=== PATIENT | male | born 1985 | race Caucasian/White ===

== ENCOUNTER 2018-12-06 13:49 | Inpatient (IN) | payer OTHER ==
[2018-12-06 15:45] VITALS: BMI 28.4
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
[2018-12-06] MEDS ORDERED: ALBUTEROL SO4 8 GM HFA INHALER IH PRN (19:48)
[2018-12-06] MEDS ORDERED: chlordiazePOXIDE HCL 25 MG CAPSULE PO ONE (19:50)
[2018-12-06] MEDS ORDERED: MAGNESIUM HYDROX 2400MG/30ML ORAL SUSPENSION 30 ML CUP PO PRN (19:50)
[2018-12-06] MEDS ORDERED: ACETAMINOPHEN 325 MG TABLET (FP) PO PRN (19:50)
[2018-12-06] MEDS ORDERED: MAGNESIUM CITRATE 300 ML BOTTLE PO PRN (19:50)
[2018-12-06] MEDS ORDERED: NICOTINE POLACRILEX 2 MG GUM BC PRN (19:50)
[2018-12-06] MEDS ORDERED: guaiFENesin/D-METHORPHAN HB 10 ML UNIT-DOSE CUPS PO PRN (19:50)
[2018-12-06] MEDS ORDERED: P-EPHED 60MG/TRIPROLIDI 2.5MG TABLET PO PRN (19:50)
[2018-12-06] MEDS ORDERED: IBUPROFEN 400 MG TABLET (FP) PO PRN (19:50)
[2018-12-06] MEDS ORDERED: MENTHOL/PHENOL 1 EACH UD MM PRN (19:50)
[2018-12-06] MEDS ORDERED: LOPERAMIDE HCL 2 MG CAPSULE PO PRN (19:50)
[2018-12-06] MEDS: chlordiazePOXIDE HCL 25 MG CAPSULE PO SCH (23:10)
[2018-12-06] MEDS: THIAMINE HCL 100 MG TABLET (FP) PO SCH (23:10)
[2018-12-07] MEDS: chlordiazePOXIDE HCL 25 MG CAPSULE PO SCH ×4 (05:15→22:04)
[2018-12-07] MEDS: NICOTINE 14 MG/24 HOURS TOPICAL PATCH TD SCH (10:32)
[2018-12-07] MEDS: PRENATAL VITAMINS W/ FOLIC ACID TABLET (FP) PO SCH (10:32)
[2018-12-07 10:42] LABS: HEMATOCRIT 38.9 % (35.4-49); HEMOGLOBIN 13.5 GM/dL (11.7-16.9); MCH 33.3 pg (25.7-33.7); MCHC 34.6 g/dl (32.0-35.9); MEAN CELL VOLUME 96.1 fl (80-96); MEAN PLT VOLUME 8.3 fl (7.5-11.1); PLATELET COUNT 213 K/MM3 (134-434); RBC 4.05 M/mm3 (4.00-5.60); RDW 14.8 % (11.9-15.9); WHITE BLOOD COUNT 5.8 K/mm3 (4.0-10.0)
[2018-12-07 11:04] LABS: ALK PHOS 91 U/L (45-117); ANION GAP 11 MMOL/L (8-16); BILIRUBIN,TOTAL 0.8 mg/dL (0.2-1); BLOOD UREA NITROGEN 10 mg/dL (7-18); CALCIUM 8.5 mg/dL (8.5-10.1); CHLORIDE 103 mmol/L (98-107); CO2 25 mmol/L (21-32); CREATININE 0.7 mg/dL (0.55-1.3); GLUCOSE,RANDOM 80 mg/dL (74-106); POTASSIUM 3.6 mmol/L (3.5-5.1); SGOT/AST 93 U/L (15-37); SGPT/ALT 70 U/L (13-61); SODIUM 139 mmol/L (136-145); TOT PROT 6.8 g/dl (6.4-8.2)
--- NOTE | 2018-12-07 11:19 | CONSULT ---
[facility] Psychiatric Consult - Data Date of interview: 12/07/18 Admission source: [facility] Identifying data: [facility] [address] [place] [address] for this 33 yo H single male,unemploeyed,residing with family,supported by family. Substance Abuse History: Reports drinking since 11 yo,6 pints of vodka/tami, cocaine since 20 yo,spending about $500 daily when has money. Medical History: Significant for BA,GERD. Psychiatric History: Patient reports mood instability since his teens.He was dx with Bipolar disorder,hospitalized to psychiatric hospital in childhood due to behavior problems.Reports no history of suicidality.Patient was seen by psychiatrist while in inpatient rehabilitation treatment recently,was placed on Trazodone with good response.No psychiatric OPD care.Reports sleeping difficulties. Physical/Sexual Abuse/Trauma History: Patient denies. Mental Status Exam - Mental Status Exam Alert and Oriented to: Time, Place, Person Cognitive Function: Grossly Intact Patient Appearance: Unkempt Mood: Anxious Affect: Mood Congruent, Labile Patient Behavior: Appropriate, Cooperative Speech Pattern: Clear Voice Loudness: Normal Thought Process: Goal Oriented Thought Disorder: Not Present Hallucinations: Denies Suicidal Ideation: Denies Homicidal Ideation: Denies Insight/Judgement: Fair Sleep: Difficulty falling asleep Appetite: Fair Muscle strength/Tone: Normal Gait/Station: Normal Psychiatric Findings - Problem List ([place] 1, 2,3) (1) Asthma Current Visit: Yes Status: Chronic Qualifiers: Asthma severity: unspecified severity Asthma complication type: uncomplicated (2) Cocaine dependence Current Visit: Yes Status: Chronic (3) GERD (gastroesophageal reflux disease) Current Visit: Yes Status: Chronic Qualifiers: Esophagitis presence: without esophagitis Qualified Code(s): K21.9 - Gastro -esophageal reflux disease without esophagitis (4) Nicotine dependence Current Visit: Yes Status: Chronic Qualifiers: Nicotine product type: cigarettes Substance use status: uncomplicated Qualified Code(s): F17.210 - Nicotine dependence, cigarettes, uncomplicated (5) Opioid dependence Current Visit: No Status: Active (6) Alcohol dependence Current Visit: Yes Status: Chronic (7) Substance induced mood disorder Current Visit: Yes Status: Chronic (8) Drug induced insomnia Current Visit: No Status: Chronic - Initial Treatment Plan Initial Treatment Plan: Restart Trazodone 100 mg po hs. Will monitor progress.
--- NOTE | 2018-12-07 11:42 | PN ---
S CIWA - CIWA Score Nausea/Vomitin-Mild Nausea/No Vomiting Muscle Tremors: 3 Anxiety: 3 Agitation: 4-Moderately Restless Paroxysmal Sweats: 3 Orientation: 0-Oriented Tacttile Disturbances: 0-None Auditory Disturbances: 0-None Visual Disturbances: 0-None Headache: 0-None Present CIWA-Ar Total Score: 14 S Progress Note (SOAP) Subjective: nausea sweats dizzy irritable body aches Objective: 12/07/18 11:41 Vital Signs Temperature 98.1 F 12/07/18 09:14 Pulse Rate 98 H 12/07/18 09:14 Respiratory Rate 16 12/07/18 09:14 Blood Pressure 145/95 12/07/18 09:14 O2 Sat by Pulse Oximetry (%) Laboratory Tests 12/07/18 12/07/18 12/07/18 07:00 07:00 07:00 WBC 5.8 RBC 4.05 Hgb 13.5 Hct 38.9 MCV 96.1 H MCH 33.3 MCHC 34.6 RDW 14.8 Plt Count 213 D MPV 8.3 D Sodium 139 Potassium 3.6 Chloride 103 Carbon Dioxide 25 Anion Gap 11 BUN 10 Creatinine 0.7 Creat Clearance w eGFR > 60 Random Glucose 80 Calcium 8.5 Total Bilirubin 0.8 AST 93 H ALT 70 H Alkaline Phosphatase 91 Total Protein 6.8 Albumin 4.0 HIV 1&2 Antibody Screen Negative HIV P24 Antigen Negative aaox3 lying in bed no acute distress Assessment: 12/07/18 11:41 withdrawal sx Plan: continue detox increase fluids
[2018-12-07] MEDS: MAG HYDROX/AL HYDROX/SIMETH 30 ML UNIT-DOSE CUP PO PRN (16:55)
[2018-12-07] MEDS: THIAMINE HCL 100 MG TABLET (FP) PO SCH (22:03)
[2018-12-07] MEDS: MELATONIN 5 MG TABLETS PO PRN (22:04)
[2018-12-08] MEDS: chlordiazePOXIDE HCL 25 MG CAPSULE PO SCH ×3 (05:52→17:49)
[2018-12-08] MEDS: MAG HYDROX/AL HYDROX/SIMETH 30 ML UNIT-DOSE CUP PO PRN ×2 (05:54→17:49)
[2018-12-08] MEDS: NICOTINE 14 MG/24 HOURS TOPICAL PATCH TD SCH (10:41)
[2018-12-08] MEDS: PRENATAL VITAMINS W/ FOLIC ACID TABLET (FP) PO SCH (10:41)
--- NOTE | 2018-12-08 11:18 | PN ---
S CIWA - CIWA Score Nausea/Vomitin Muscle Tremors: 2 Anxiety: 2 Agitation: 2 Paroxysmal Sweats: 2 Orientation: 0-Oriented Tacttile Disturbances: 2-Mild Itch/Numbness/Burn Auditory Disturbances: 0-None Visual Disturbances: 0-None Headache: 1-Very Mild CIWA-Ar Total Score: 13 S Progress Note (SOAP) Subjective: Abdominal cramps,nausea with small vomiting Objective: 12/08/18 11:17 Vital Signs 12/08/18 12/08/18 06:00 09:40 Temperature 97.0 F L 97.9 F Pulse Rate 70 75 Respiratory 18 18 Rate Blood Pressure 121/81 100/57 L Laboratory Last Values WBC 5.8 K/mm3 (4.0-10.0) 12/07/18 07:00 RBC 4.05 M/mm3 (4.00-5.60) 12/07/18 07:00 Hgb 13.5 GM/dL (11.7-16.9) 12/07/18 07:00 Hct 38.9 % (35.4-49) 12/07/18 07:00 MCV 96.1 fl (80-96) H 12/07/18 07:00 MCH 33.3 pg (25.7-33.7) 12/07/18 07:00 MCHC 34.6 g/dl (32.0-35.9) 12/07/18 07:00 RDW 14.8 % (11.9-15.9) 12/07/18 07:00 Plt Count 213 K/MM3 (134-434) D 12/07/18 07:00 MPV 8.3 fl (7.5-11.1) D 12/07/18 07:00 Sodium 139 mmol/L (136-145) 12/07/18 07:00 Potassium 3.6 mmol/L (3.5-5.1) 12/07/18 07:00 Chloride 103 mmol/L (98-107) 12/07/18 07:00 Carbon Dioxide 25 mmol/L (21-32) 12/07/18 07:00 Anion Gap 11 MMOL/L (8-16) 12/07/18 07:00 BUN 10 mg/dL (7-18) 12/07/18 07:00 Creatinine 0.7 mg/dL (0.55-1.3) 12/07/18 07:00 Creat Clearance w eGFR > 60 (>60) 12/07/18 07:00 Random Glucose 80 mg/dL (74-106) 12/07/18 07:00 Calcium 8.5 mg/dL (8.5-10.1) 12/07/18 07:00 Total Bilirubin 0.8 mg/dL (0.2-1) 12/07/18 07:00 AST 93 U/L (15-37) H 12/07/18 07:00 ALT 70 U/L (13-61) H 12/07/18 07:00 Alkaline Phosphatase 91 U/L (45-117) 12/07/18 07:00 Total Protein 6.8 g/dl (6.4-8.2) 12/07/18 07:00 Albumin 4.0 g/dl (3.4-5.0) 12/07/18 07:00 RPR Titer Nonreactive (NONREACTIVE) 12/07/18 07:00 HIV 1&2 Antibody Screen Negative 12/07/18 07:00 HIV P24 Antigen Negative 12/07/18 07:00 Labs noted, no panic values Assessment: 12/08/18 11:17 Withdrawal sx Plan: Continue detox
[2018-12-08] MEDS ORDERED: ONDANSETRON 8 MG TABLET (FP) PO ONE (12:00)
[2018-12-08] MEDS ORDERED: ONDANSETRON 4 MG TABLET PO ONE (15:00)
[2018-12-08] MEDS: chlordiazePOXIDE HCL 25 MG CAPSULE PO PRN (20:08)
[2018-12-08] MEDS: chlordiazePOXIDE 5 MG CAPSULE PO SCH (23:34)
[2018-12-08] MEDS: THIAMINE HCL 100 MG TABLET (FP) PO SCH (23:35)
[2018-12-08] MEDS: hydrOXYzine PAMOATE 50 MG CAPSULE (FP) PO PRN (23:37)
[2018-12-09] MEDS: chlordiazePOXIDE 5 MG CAPSULE PO SCH ×3 (06:02→22:59)
[2018-12-09] MEDS: MAG HYDROX/AL HYDROX/SIMETH 30 ML UNIT-DOSE CUP PO PRN (06:03)
[2018-12-09] MEDS: NICOTINE 14 MG/24 HOURS TOPICAL PATCH TD SCH (10:50)
[2018-12-09] MEDS: PRENATAL VITAMINS W/ FOLIC ACID TABLET (FP) PO SCH (10:52)
[2018-12-09] MEDS: chlordiazePOXIDE HCL 25 MG CAPSULE PO PRN ×2 (11:34→17:00)
--- NOTE | 2018-12-09 13:34 | PN ---
[facility] Progress Note (SOAP) Subjective: Tremor, sweating Objective: 12/09/18 13:32 Last Vital Signs Temp Pulse Resp BP Pulse Ox 98.3 F 81 18 128/90 12/09/18 10:08 12/09/18 10:08 12/09/18 10:08 12/09/18 10:08 Laboratory Tests 12/07/18 12/07/18 12/07/18 07:00 07:00 07:00 WBC 5.8 RBC 4.05 Hgb 13.5 Hct 38.9 MCV 96.1 H MCH 33.3 MCHC 34.6 RDW 14.8 Plt Count 213 D MPV 8.3 D Sodium 139 Potassium 3.6 Chloride 103 Carbon Dioxide 25 Anion Gap 11 BUN 10 Creatinine 0.7 Creat Clearance w eGFR > 60 Random Glucose 80 Calcium 8.5 Total Bilirubin 0.8 AST 93 H ALT 70 H Alkaline Phosphatase 91 Total Protein 6.8 Albumin 4.0 RPR Titer Nonreactive HIV 1&2 Antibody Screen HIV P24 Antigen 12/07/18 07:00 WBC RBC Hgb Hct MCV MCH MCHC RDW Plt Count MPV Sodium Potassium Chloride Carbon Dioxide Anion Gap BUN Creatinine Creat Clearance w eGFR Random Glucose Calcium Total Bilirubin AST ALT Alkaline Phosphatase Total Protein Albumin RPR Titer HIV 1&2 Antibody Screen Negative HIV P24 Antigen Negative Labs reviewed Assessment: 12/09/18 13:33 Withdrawal symptoms Plan: Continue detox Encouraged PO water intake
[2018-12-09] MEDS: THIAMINE HCL 100 MG TABLET (FP) PO SCH (22:59)
[2018-12-09] MEDS: MELATONIN 5 MG TABLETS PO PRN (22:59)
[2018-12-09] MEDS: chlordiazePOXIDE HCL 10 MG CAPSULE PO SCH (22:59)
[2018-12-09] MEDS: hydrOXYzine PAMOATE 50 MG CAPSULE (FP) PO PRN (22:59)
[2018-12-10] MEDS: chlordiazePOXIDE HCL 10 MG CAPSULE PO SCH ×3 (05:39→17:09)
[2018-12-10] MEDS: NICOTINE 14 MG/24 HOURS TOPICAL PATCH TD SCH (10:29)
[2018-12-10] MEDS: PRENATAL VITAMINS W/ FOLIC ACID TABLET (FP) PO SCH (10:29)
--- NOTE | 2018-12-10 12:54 | DS ---
[facility] Detox Discharge Summary Admission Date: 12/06/18 Discharge Date: 12/10/18 - History Present History: Alcohol Dependence, Cocaine Dependence, Opioid Dependence Additional Comments: PATIENT SCHEDULED FOR DISCHARGE FROM DETOX UNIT TO DAY. PATIENT GOING TO [facility] ([place] [email or web address] FOR AFTERCARE. PATIENT WAS DISCHARGED FROM DETOX UNIT TO BE TAKEN OVER TO REHAB UNIT IN STABLE MEDICAL CONDITION. Pertinent Past History: History of Bipolar Disorder, History of P.T.S.D., Nicotine Dependence, Asthma, History of Depression, Insomnia, History of G.E.R.D. - Physical Exam Results Vital Signs: Vital Signs Temperature 97.5 F L 12/10/18 09:26 Pulse Rate 94 H 12/10/18 09:26 Respiratory Rate 18 12/10/18 09:26 Blood Pressure 115/75 12/10/18 09:26 O2 Sat by Pulse Oximetry (%) Pertinent Admission Physical Exam Findings: WITHDRAWAL SYMPTOMS. Laboratory Tests 12/07/18 12/07/18 12/07/18 07:00 07:00 07:00 WBC 5.8 RBC 4.05 Hgb 13.5 Hct 38.9 MCV 96.1 H MCH 33.3 MCHC 34.6 RDW 14.8 Plt Count 213 D MPV 8.3 D Sodium 139 Potassium 3.6 Chloride 103 Carbon Dioxide 25 Anion Gap 11 BUN 10 Creatinine 0.7 Creat Clearance w eGFR > 60 Random Glucose 80 Calcium 8.5 Total Bilirubin 0.8 AST 93 H ALT 70 H Alkaline Phosphatase 91 Total Protein 6.8 Albumin 4.0 RPR Titer Nonreactive HIV 1&2 Antibody Screen HIV P24 Antigen 12/07/18 07:00 WBC RBC Hgb Hct MCV MCH MCHC RDW Plt Count MPV Sodium Potassium Chloride Carbon Dioxide Anion Gap BUN Creatinine Creat Clearance w eGFR Random Glucose Calcium Total Bilirubin AST ALT Alkaline Phosphatase Total Protein Albumin RPR Titer HIV 1&2 Antibody Screen Negative HIV P24 Antigen Negative LABS NOTED. - Treatment Hospital Course: Detox Protocol Followed, Detoxed Safely, Responded well, Discharged Condition Good, Rehab Referral Accepted Patient has Accepted a Rehab Referral to: [facility] ([place], [place]). - Medication Discharge Medications: Ambulatory Orders Albuterol Sulfate Inhaler - [Ventolin HFA Inhaler -] 2 inh PO Q4H PRN #1 cartridge 01/10/16 Thiamine HCl [Vitamin B1 -] 100 mg PO HS #30 tablet 01/10/16 Omeprazole 20 mg PO DAILY 12/06/18 - Diagnosis (1) Alcohol dependence with uncomplicated withdrawal Current Visit: Yes Status: Acute (2) Asthma Current Visit: Yes Status: Chronic Qualifiers: Asthma severity: mild Asthma persistence: intermittent Asthma complication type: uncomplicated Qualified Code(s): J45.20 - Mild intermittent asthma, uncomplicated (3) Cocaine dependence Current Visit: Yes Status: Chronic (4) Substance induced mood disorder Current Visit: Yes Status: Acute (5) GERD (gastroesophageal reflux disease) Current Visit: Yes Status: Chronic Qualifiers: Esophagitis presence: without esophagitis Qualified Code(s): K21.9 - Gastro -esophageal reflux disease without esophagitis (6) Drug induced insomnia Current Visit: Yes Status: Chronic (7) Nicotine dependence Current Visit: Yes Status: Chronic Qualifiers: Nicotine product type: cigarettes Substance use status: uncomplicated Qualified Code(s): F17.210 - Nicotine dependence, cigarettes, uncomplicated (8) Opioid dependence Current Visit: Yes Status: Chronic - AMA Did Patient Leave Against Medical Advice: No
[2018-12-10 13:29] VITALS: BP 127/77; PULSE 81; TEMP 98.6
== END 2018-12-10 17:39 | disposition other institution (70) | DRG 773 ==
LOC: YASAS 13:49 → Y6N 21:59
PROVIDERS: ADMIT Neuromusculoskeletal Medicine & OMM; ATTEND Neuromusculoskeletal Medicine & OMM
PROC: HZ2ZZZZ Detoxification Services for Substance Abuse Treatment (ICD-10-PCS; principal; 2018-12-06)
DX: F11.20 Opioid dependence, uncomplicated (principal); F10.230 Alcohol dependence with withdrawal, uncomplicated; F14.20 Cocaine dependence, uncomplicated; F17.210 Nicotine dependence, cigarettes, uncomplicated; F19.282 Other psychoactive substance dependence with psychoactive substance-induced sleep disorder; F19.24 Other psychoactive substance dependence with psychoactive substance-induced mood disorder; F31.9 Bipolar disorder, unspecified; F43.10 Post-traumatic stress disorder, unspecified; F41.8 Other specified anxiety disorders; J45.20 Mild intermittent asthma, uncomplicated; K21.9 Gastro-esophageal reflux disease without esophagitis
CPT/HCPCS: 36415; 80053; 85027; 86593; 87389

== ENCOUNTER 2018-12-10 17:57 | Inpatient (IN) | payer OTHER ==
--- NOTE | 2018-12-10 13:01 | HP ---
[facility] Rehab Assess/Revision - Admission History Admitted to Rehab from[facility] Date of Admission to Rehab: 12/10/2018 - Vital signs Vital Signs: NOTED; STABLE. - Findings Detox History & Physical reviewed: Yes Concur with findings: Yes Comments/Additional Findings: PATIENT'S MEDICAL / MEDICATION HISTORY REVIEWED PRIOR TO DISCHARGE FROM DETOX UNIT. PATIENT WAS DISCHARGED FROM DETOX UNIT TO BE TAKEN TO REHAB UNIT IN STABLE MEDICAL CONDITION. Inpatient Rehab Admission - Initial Determination Are CD services needed?: Yes Free of communicable disease: Yes Not in need of hospitalization: Yes - Rehab Admission Criteria Previous failed treatment: Yes Comorbidities: Yes Patient is meeting Inpatient Rehab admission criteria:: Yes
[~2018-12-10 17:57] MED LIST: ACETAMINOPHEN 325 MG TABLET (FP) PO PRN; ALBUTEROL SO4 8 GM HFA INHALER IH PRN; IBUPROFEN 400 MG TABLET (FP) PO PRN; LOPERAMIDE HCL 2 MG CAPSULE PO PRN; MAGNESIUM CITRATE 300 ML BOTTLE PO PRN; MAGNESIUM HYDROX 2400MG/30ML ORAL SUSPENSION 30 ML CUP PO PRN; MENTHOL/PHENOL 1 EACH UD MM PRN; NICOTINE POLACRILEX 2 MG GUM BUC PRN; P-EPHED 60MG/TRIPROLIDI 2.5MG TABLET PO PRN; guaiFENesin/D-METHORPHAN HB 10 ML UNIT-DOSE CUPS PO PRN
[2018-12-10] MEDS: THIAMINE HCL 100 MG TABLET (FP) PO SCH (21:52)
[2018-12-10] MEDS ORDERED: MELATONIN 5 MG TABLETS PO PRN (22:00)
[2018-12-11] MEDS: MAG HYDROX/AL HYDROX/SIMETH 30 ML UNIT-DOSE CUP PO PRN ×2 (01:24→11:19)
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
[2018-12-11] MEDS: PRENATAL VITAMINS W/ FOLIC ACID TABLET (FP) PO SCH (11:18)
[2018-12-11] MEDS: NICOTINE 14 MG/24 HOURS TOPICAL PATCH TD SCH (11:19)
[2018-12-11] MEDS ORDERED: MELATONIN 5 MG TABLETS PO PRN (11:59)
[2018-12-11] MEDS ORDERED: hydrOXYzine PAMOATE 50 MG CAPSULE (FP) PO PRN (12:00)
[2018-12-11] MEDS: PANTOPRAZOLE 40 MG TABLET (FP) PO SCH (12:22)
[2018-12-11] MEDS: THIAMINE HCL 100 MG TABLET (FP) PO SCH (21:35)
[2018-12-11] MEDS: traZODone HCL 100 MG TABLET (FP) PO SCH (21:35)
[2018-12-12] MEDS: MAG HYDROX/AL HYDROX/SIMETH 30 ML UNIT-DOSE CUP PO PRN (04:25)
[2018-12-12] MEDS: PANTOPRAZOLE 40 MG TABLET (FP) PO SCH (10:52)
[2018-12-12] MEDS: PRENATAL VITAMINS W/ FOLIC ACID TABLET (FP) PO SCH (10:52)
[2018-12-12] MEDS: NICOTINE 14 MG/24 HOURS TOPICAL PATCH TD SCH (10:53)
[2018-12-12] MEDS: THIAMINE HCL 100 MG TABLET (FP) PO SCH (21:44)
[2018-12-12] MEDS: traZODone HCL 100 MG TABLET (FP) PO SCH (21:44)
[2018-12-13] MEDS: NICOTINE 14 MG/24 HOURS TOPICAL PATCH TD SCH (10:22)
[2018-12-13] MEDS: PRENATAL VITAMINS W/ FOLIC ACID TABLET (FP) PO SCH (10:22)
[2018-12-13] MEDS: PANTOPRAZOLE 40 MG TABLET (FP) PO SCH (10:22)
[2018-12-13] MEDS: RANITIDINE HCL 150 MG TABLET (FP) PO SCH ×2 (12:55→21:42)
--- NOTE | 2018-12-13 15:34 | PN ---
[facility] Progress Note Note: C/O PROTONIX NOT EFFECTIIVE FOR ACID REFLUX AND WANTS A CHANGE. ALERT O X 3. DENEIS NAUSEA OR VOMITING. Vital Signs - 24 hr 12/13/18 12/13/18 12/13/18 00:30 03:30 07:13 Temperature 98.9 F Pulse Rate 71 Respiratory 18 18 18 Rate Blood Pressure 135/78 NAD PLAN:D/C PROTONIX START ZANTAC 150 MG PO BID
[2018-12-13] MEDS: THIAMINE HCL 100 MG TABLET (FP) PO SCH (21:42)
[2018-12-13] MEDS: traZODone HCL 100 MG TABLET (FP) PO SCH (21:43)
[2018-12-14] MEDS: RANITIDINE HCL 150 MG TABLET (FP) PO SCH ×2 (10:23→21:39)
[2018-12-14] MEDS: PRENATAL VITAMINS W/ FOLIC ACID TABLET (FP) PO SCH (10:23)
[2018-12-14] MEDS: NICOTINE 14 MG/24 HOURS TOPICAL PATCH TD SCH (10:24)
[2018-12-14] MEDS: traZODone HCL 100 MG TABLET (FP) PO SCH (21:39)
[2018-12-14] MEDS: THIAMINE HCL 100 MG TABLET (FP) PO SCH (21:39)
[2018-12-15] MEDS: PRENATAL VITAMINS W/ FOLIC ACID TABLET (FP) PO SCH (10:26)
[2018-12-15] MEDS: RANITIDINE HCL 150 MG TABLET (FP) PO SCH ×2 (10:26→21:35)
[2018-12-15] MEDS: NICOTINE 14 MG/24 HOURS TOPICAL PATCH TD SCH (10:27)
[2018-12-15] MEDS: THIAMINE HCL 100 MG TABLET (FP) PO SCH (21:34)
[2018-12-15] MEDS: traZODone HCL 100 MG TABLET (FP) PO SCH (21:35)
[2018-12-16] MEDS: RANITIDINE HCL 150 MG TABLET (FP) PO SCH ×2 (09:57→21:34)
[2018-12-16] MEDS: PRENATAL VITAMINS W/ FOLIC ACID TABLET (FP) PO SCH (09:57)
[2018-12-16] MEDS: NICOTINE 14 MG/24 HOURS TOPICAL PATCH TD SCH (09:58)
[2018-12-16] MEDS: THIAMINE HCL 100 MG TABLET (FP) PO SCH (21:34)
[2018-12-16] MEDS: traZODone HCL 100 MG TABLET (FP) PO SCH (21:34)
[2018-12-17] MEDS: PRENATAL VITAMINS W/ FOLIC ACID TABLET (FP) PO SCH (10:26)
[2018-12-17] MEDS: RANITIDINE HCL 150 MG TABLET (FP) PO SCH ×2 (10:26→21:39)
[2018-12-17] MEDS: NICOTINE 14 MG/24 HOURS TOPICAL PATCH TD SCH (10:26)
[2018-12-17] MEDS: THIAMINE HCL 100 MG TABLET (FP) PO SCH (21:39)
[2018-12-17] MEDS: traZODone HCL 100 MG TABLET (FP) PO SCH (21:39)
[2018-12-18] MEDS: PRENATAL VITAMINS W/ FOLIC ACID TABLET (FP) PO SCH (10:28)
[2018-12-18] MEDS: NICOTINE 14 MG/24 HOURS TOPICAL PATCH TD SCH (10:28)
[2018-12-18] MEDS: RANITIDINE HCL 150 MG TABLET (FP) PO SCH ×2 (10:28→21:35)
[2018-12-18] MEDS: traZODone HCL 100 MG TABLET (FP) PO SCH (21:35)
[2018-12-18] MEDS: THIAMINE HCL 100 MG TABLET (FP) PO SCH (21:35)
[2018-12-19] MEDS: NICOTINE 14 MG/24 HOURS TOPICAL PATCH TD SCH (10:20)
[2018-12-19] MEDS: PRENATAL VITAMINS W/ FOLIC ACID TABLET (FP) PO SCH (10:20)
[2018-12-19] MEDS: RANITIDINE HCL 150 MG TABLET (FP) PO SCH ×2 (10:20→21:46)
[2018-12-19] MEDS: THIAMINE HCL 100 MG TABLET (FP) PO SCH (21:46)
[2018-12-19] MEDS: traZODone HCL 100 MG TABLET (FP) PO SCH (21:46)
[2018-12-20] MEDS: RANITIDINE HCL 150 MG TABLET (FP) PO SCH ×2 (10:59→21:46)
[2018-12-20] MEDS: PRENATAL VITAMINS W/ FOLIC ACID TABLET (FP) PO SCH (10:59)
[2018-12-20] MEDS: NICOTINE 14 MG/24 HOURS TOPICAL PATCH TD SCH (10:59)
[2018-12-20] MEDS: THIAMINE HCL 100 MG TABLET (FP) PO SCH (21:46)
[2018-12-20] MEDS: traZODone HCL 100 MG TABLET (FP) PO SCH (21:46)
[2018-12-21] MEDS: PRENATAL VITAMINS W/ FOLIC ACID TABLET (FP) PO SCH (10:42)
[2018-12-21] MEDS: RANITIDINE HCL 150 MG TABLET (FP) PO SCH ×2 (10:42→21:47)
[2018-12-21] MEDS: NICOTINE 14 MG/24 HOURS TOPICAL PATCH TD SCH (10:43)
[2018-12-21] MEDS: THIAMINE HCL 100 MG TABLET (FP) PO SCH (21:47)
[2018-12-21] MEDS: traZODone HCL 100 MG TABLET (FP) PO SCH (21:47)
[2018-12-22] MEDS: RANITIDINE HCL 150 MG TABLET (FP) PO SCH ×2 (10:25→21:46)
[2018-12-22] MEDS: PRENATAL VITAMINS W/ FOLIC ACID TABLET (FP) PO SCH (10:25)
[2018-12-22] MEDS: NICOTINE 14 MG/24 HOURS TOPICAL PATCH TD SCH (10:25)
[2018-12-22] MEDS: traZODone HCL 100 MG TABLET (FP) PO SCH (21:46)
[2018-12-22] MEDS: THIAMINE HCL 100 MG TABLET (FP) PO SCH (21:46)
[2018-12-23] MEDS: PRENATAL VITAMINS W/ FOLIC ACID TABLET (FP) PO SCH (10:34)
[2018-12-23] MEDS: RANITIDINE HCL 150 MG TABLET (FP) PO SCH ×2 (10:35→21:48)
[2018-12-23] MEDS: NICOTINE 14 MG/24 HOURS TOPICAL PATCH TD SCH (10:35)
[2018-12-23] MEDS: traZODone HCL 100 MG TABLET (FP) PO SCH (21:48)
[2018-12-23] MEDS: THIAMINE HCL 100 MG TABLET (FP) PO SCH (21:48)
[2018-12-24 08:01] VITALS: BP 111/77; PULSE 80; TEMP 98.1
--- NOTE | 2018-12-24 12:18 | PN ---
[facility] Progress Note Note: PT COMPLETED REHAB AND DISCHARGED TODAY. PT WAS REFERRED TO [facility] PT PROGRAM ON [address], [place] FOR AFTERCARE. Vital Signs - 24 hr 12/24/18 12/24/18 12/24/18 00:30 03:30 07:45 Temperature 98.1 F Pulse Rate 80 Respiratory 18 18 18 Rate Blood Pressure 111/77 MEDICALLY STABLE NAD PLAN:FOLLOW UP WITH TREATMENT RECOMMENDATION ON 12/25/18 AT 09:00
== END 2018-12-24 10:40 | disposition home or self-care (01) | DRG 772 ==
LOC: YASAS 17:57 → Y5N 17:58
PROVIDERS: ADMIT Psychiatry & Neurology Psychiatry; ATTEND Psychiatry & Neurology Psychiatry
PROC: HZ42ZZZ Group Counseling for Substance Abuse Treatment, Cognitive-Behavioral (ICD-10-PCS; principal; 2018-12-10)
DX: F10.24 Alcohol dependence with alcohol-induced mood disorder (principal); F10.282 Alcohol dependence with alcohol-induced sleep disorder; F17.210 Nicotine dependence, cigarettes, uncomplicated; F39 Unspecified mood [affective] disorder; F31.9 Bipolar disorder, unspecified; F43.10 Post-traumatic stress disorder, unspecified; J45.909 Unspecified asthma, uncomplicated; K21.9 Gastro-esophageal reflux disease without esophagitis; G25.81 Restless legs syndrome; Z87.438 Personal history of other diseases of male genital organs; Z91.013 Allergy to seafood

== ENCOUNTER 2021-10-21 16:35 | Inpatient (IN) | payer OTHER ==
[2021-10-21] MEDS ORDERED: BISMUTH SUBSALICYLATE 524 MG/30 ML PO PRN (18:48)
[2021-10-21] MEDS ORDERED: IBUPROFEN 400 MG TABLET (FP) PO PRN (18:48)
[2021-10-21] MEDS ORDERED: MAGNESIUM CITRATE 300 ML BOTTLE PO PRN (18:48)
[2021-10-21] MEDS ORDERED: ONDANSETRON *ODT* 4 MG TABLET SL PRN (18:48)
[2021-10-21] MEDS ORDERED: MAG HYDROX/AL HYDROX/SIMETH 30 ML UNIT-DOSE CUP PO PRN (18:48)
[2021-10-21] MEDS ORDERED: ACETAMINOPHEN 325 MG TABLET (FP) PO PRN ×2 (18:48)
[2021-10-21] MEDS ORDERED: MENTHOL/PHENOL 1 EACH UD MM PRN (18:48)
[2021-10-21] MEDS ORDERED: chlordiazePOXIDE HCL 25 MG CAPSULE PO ONE (18:51)
[2021-10-21 19:39] VITALS: BMI 23.6
[2021-10-21] MEDS: chlordiazePOXIDE HCL 25 MG CAPSULE PO SCH (22:37)
[2021-10-21] MEDS: MELATONIN 5 MG TABLETS PO SCH (22:38)
[2021-10-21] MEDS: THIAMINE HCL 100 MG TABLET (FP) PO SCH (22:38)
[2021-10-22] MEDS: chlordiazePOXIDE HCL 25 MG CAPSULE PO SCH ×4 (05:34→22:34)
[2021-10-22] MEDS: PRENATAL VITAMINS W/ FOLIC ACID TABLET (FP) PO SCH (10:35)
[2021-10-22] MEDS: METHOCARBAMOL 500 MG TABLET PO PRN (10:36)
[2021-10-22] MEDS: chlordiazePOXIDE HCL 25 MG CAPSULE PO PRN (14:09)
[2021-10-22 14:53] LABS: HEMATOCRIT 41.7 % (35.4-49); HEMOGLOBIN 14.1 GM/dL (11.7-16.9); MCH 33.6 pg (25.7-33.7); MCHC 33.8 g/dl (32.0-35.9); MEAN CELL VOLUME 99.5 fl (80-96); MEAN PLT VOLUME 8.7 fl (7.5-11.1); PLATELET COUNT 135 10^3/uL (134-434); RBC 4.19 M/mm3 (4.00-5.60); RDW 14.9 % (11.9-15.9); WHITE BLOOD COUNT 6.9 K/mm3 (4.0-10.0)
[2021-10-22 14:56] LABS: ALBUMIN 3.8 g/dl (3.4-5.0); BILIRUBIN,TOTAL 1.3 mg/dL (0.2-1); BLOOD UREA NITROGEN 5.8 mg/dL (7-18); CALCIUM 9.7 mg/dL (8.5-10.1)
[2021-10-22 14:59] LABS: CREATININE 0.7 mg/dL (0.55-1.3); TOT PROT 6.9 g/dl (6.4-8.2)
[2021-10-22] MEDS: hydrOXYzine PAMOATE 25 MG CAPSULE (FP) PO PRN (18:09)
[2021-10-22] MEDS: MAGNESIUM HYDROX 2400MG/30ML ORAL SUSPENSION 30 ML CUP PO PRN (20:51)
[2021-10-22] MEDS: MELATONIN 5 MG TABLETS PO SCH (22:34)
[2021-10-22] MEDS: THIAMINE HCL 100 MG TABLET (FP) PO SCH (22:34)
[2021-10-23] MEDS: chlordiazePOXIDE HCL 25 MG CAPSULE PO SCH ×5 (07:18→23:31)
[2021-10-23] MEDS: METHOCARBAMOL 500 MG TABLET PO PRN ×2 (10:49→23:12)
[2021-10-23] MEDS: PRENATAL VITAMINS W/ FOLIC ACID TABLET (FP) PO SCH (10:49)
[2021-10-23] MEDS: hydrOXYzine PAMOATE 25 MG CAPSULE (FP) PO PRN ×3 (10:49→23:09)
[2021-10-23] MEDS: MAGNESIUM HYDROX 2400MG/30ML ORAL SUSPENSION 30 ML CUP PO PRN (17:34)
[2021-10-23] MEDS: MELATONIN 5 MG TABLETS PO SCH (22:42)
[2021-10-23] MEDS: chlordiazePOXIDE HCL 25 MG CAPSULE PO PRN (22:43)
[2021-10-23] MEDS: THIAMINE HCL 100 MG TABLET (FP) PO SCH (22:43)
[2021-10-24] MEDS ORDERED: chlordiazePOXIDE HCL 10 MG CAPSULE PO PRN
[2021-10-24] MEDS: chlordiazePOXIDE HCL 10 MG CAPSULE PO SCH ×2 (05:39→10:23)
[2021-10-24] MEDS: METHOCARBAMOL 500 MG TABLET PO PRN (05:41)
[2021-10-24 09:55] VITALS: BP 128/87; PULSE 91; TEMP 98.3
[2021-10-24] MEDS: PRENATAL VITAMINS W/ FOLIC ACID TABLET (FP) PO SCH (10:24)
[2021-10-24] MEDS ORDERED: ALBUTEROL SO4 HFA INHALER IH PRN (10:31)
[2021-10-25] MEDS ORDERED: chlordiazePOXIDE HCL 10 MG CAPSULE PO SCH (05:00)
[2021-10-26] MEDS ORDERED: chlordiazePOXIDE HCL 10 MG CAPSULE PO ONE (05:00)
== END 2021-10-24 12:57 | disposition left against medical advice (07) | DRG 770 ==
LOC: YASAS 16:35 → Y6N 18:59
PROVIDERS: ADMIT Allergy & Immunology; ATTEND Allergy & Immunology
PROC: HZ2ZZZZ Detoxification Services for Substance Abuse Treatment (ICD-10-PCS; principal; 2021-10-21)
DX: F10.230 Alcohol dependence with withdrawal, uncomplicated (principal); F10.220 Alcohol dependence with intoxication, uncomplicated; F10.24 Alcohol dependence with alcohol-induced mood disorder; F10.282 Alcohol dependence with alcohol-induced sleep disorder; F10.280 Alcohol dependence with alcohol-induced anxiety disorder; F14.20 Cocaine dependence, uncomplicated; F17.210 Nicotine dependence, cigarettes, uncomplicated; F43.10 Post-traumatic stress disorder, unspecified; F39 Unspecified mood [affective] disorder; K31.9 Disease of stomach and duodenum, unspecified; R74.01 Elevation of levels of liver transaminase levels; E80.6 Other disorders of bilirubin metabolism; J45.909 Unspecified asthma, uncomplicated; G25.81 Restless legs syndrome; R00.0 Tachycardia, unspecified; Z87.438 Personal history of other diseases of male genital organs; Z91.013 Allergy to seafood; Z91.018 Allergy to other foods
CPT/HCPCS: 36415; 80053; 85027; 86780; C9803; U0003; U0005

== ENCOUNTER 2023-03-29 13:36 | Inpatient (IN) | payer OTHER ==
[2023-03-29 14:05] VITALS: BMI 25.3
[2023-03-29] MEDS ORDERED: TRIMETHOBENZAMIDE HCL 200MG/2ML INJ IM ONE ×2 (16:42→16:51)
[2023-03-29] MEDS ORDERED: LORazepam 2 MG/ML SDV VIAL IM ONE (16:43)
[2023-03-29] MEDS ORDERED: MAGNESIUM HYDROX 2400MG/30ML ORAL SUSPENSION 30 ML CUP PO PRN (16:46)
[2023-03-29] MEDS ORDERED: P-EPHED 60MG/TRIPROLIDI 2.5MG TABLET PO PRN (16:46)
[2023-03-29] MEDS ORDERED: LOPERAMIDE HCL 2 MG CAPSULE PO PRN (16:46)
[2023-03-29] MEDS ORDERED: BENZONATATE 200 MG CAPSULE PO PRN (16:46)
[2023-03-29] MEDS ORDERED: IBUPROFEN 600 MG TABLET (FP) PO PRN (16:46)
[2023-03-29] MEDS ORDERED: NICOTINE POLACRILEX 2 MG GUM BUC PRN (16:46)
[2023-03-29] MEDS ORDERED: MAG HYDROX/AL HYDROX/SIMETH 30 ML UNIT-DOSE CUP PO PRN (16:46)
[2023-03-29] MEDS ORDERED: POLYETHYLENE GLYCOL (HEALTHYLAX) 3350 17 GM PACKET PO PRN (16:46)
[2023-03-29] MEDS ORDERED: ONDANSETRON *ODT* 4 MG TABLET SL PRN (16:46)
[2023-03-29] MEDS ORDERED: IBUPROFEN 400 MG TABLET (FP) PO PRN (16:46)
[2023-03-29] MEDS ORDERED: guaiFENesin 600 MG TABLET.ER (FP) PO PRN (16:46)
[2023-03-29] MEDS ORDERED: BENZOCAINE/MENTHOL (CHLORASEPTIC ) LOZENGE MM PRN (16:46)
[2023-03-29] MEDS ORDERED: BISMUTH SUBSALICYLATE 524 MG/30 ML PO PRN (16:46)
[2023-03-29] MEDS ORDERED: ACETAMINOPHEN 325 MG TABLET (FP) PO PRN (16:46)
[2023-03-29] MEDS ORDERED: DICYCLOMINE HCL 10 MG CAPSULE PO PRN (16:46)
[2023-03-29] MEDS ORDERED: chlordiazePOXIDE HCL 25 MG CAPSULE PO PRN (16:49)
[2023-03-29] MEDS ORDERED: MECLIZINE HCL 25 MG TABLET (FP) PO PRN (16:49)
[2023-03-29] MEDS: chlordiazePOXIDE HCL 25 MG CAPSULE PO SCH ×2 (18:15→22:34)
[2023-03-29] MEDS: ATORVASTATIN CA 10 MG TABLET (FP) PO SCH (22:34)
[2023-03-30] MEDS: chlordiazePOXIDE HCL 25 MG CAPSULE PO SCH ×4 (05:17→22:19)
[2023-03-30] MEDS: PANTOPRAZOLE 20 MG TABLET PO SCH (10:47)
[2023-03-30] MEDS: FOLIC ACID 1 MG TABLET (FP) PO SCH (10:47)
[2023-03-30] MEDS: PRENATAL VITAMINS W/ FOLIC ACID TABLET (FP) PO SCH (10:47)
[2023-03-30] MEDS: THIAMINE HCL 100 MG TABLET (FP) PO SCH (10:47)
[2023-03-30 11:47] LABS: POTASSIUM 3.4 mmol/L (3.5-5.1)
[2023-03-30 11:50] LABS: HEMOGLOBIN 13.6 GM/dL (11.7-16.9); MCHC 34.9 g/dl (32.0-35.9); MEAN CELL VOLUME 94.6 fl (80-96); MEAN PLT VOLUME 9.2 fl (7.5-11.1); PLATELET COUNT 97 10^3/uL (134-434); RBC 4.13 M/mm3 (4.00-5.60); RDW 14.5 % (11.9-15.9); WHITE BLOOD COUNT 6.1 K/mm3 (4.0-10.0)
[2023-03-30 11:53] LABS: BLOOD UREA NITROGEN 7.5 mg/dL (7-18)
[2023-03-30 11:57] LABS: BILIRUBIN,TOTAL 1.6 mg/dL (0.2-1); CREATININE 0.7 mg/dL (0.55-1.3); TOT PROT 7.2 g/dl (6.4-8.2)
[2023-03-30] MEDS: ATORVASTATIN CA 10 MG TABLET (FP) PO SCH (22:19)
[2023-03-31] MEDS: chlordiazePOXIDE HCL 25 MG CAPSULE PO SCH ×3 (05:27→18:04)
[2023-03-31] MEDS: PANTOPRAZOLE 20 MG TABLET PO SCH (10:00)
[2023-03-31] MEDS: PRENATAL VITAMINS W/ FOLIC ACID TABLET (FP) PO SCH (10:00)
[2023-03-31] MEDS: THIAMINE HCL 100 MG TABLET (FP) PO SCH (10:00)
[2023-03-31] MEDS: FOLIC ACID 1 MG TABLET (FP) PO SCH (10:00)
[2023-03-31] MEDS ORDERED: POTASSIUM CHLORIDE ORAL LIQUID 20 MEQ/15 ML PO ONE (14:00)
[2023-03-31] MEDS: LORazepam 1 MG TABLET PO SCH ×2 (17:34→22:40)
[2023-03-31] MEDS: MELATONIN 5 MG TABLETS PO PRN (22:39)
[2023-03-31] MEDS: ATORVASTATIN CA 10 MG TABLET (FP) PO SCH (22:40)
[2023-03-31] MEDS: POTASSIUM CHLORIDE ORAL LIQUID 20 MEQ/15 ML PO SCH (22:41)
[2023-04-01] MEDS ORDERED: chlordiazePOXIDE HCL 10 MG CAPSULE PO PRN
[2023-04-01] MEDS ORDERED: chlordiazePOXIDE HCL 10 MG CAPSULE PO SCH (05:00)
[2023-04-01] MEDS: LORazepam 0.5 MG TABLET PO SCH ×4 (05:25→22:01)
[2023-04-01] MEDS: LORazepam 1 MG TABLET PO PRN ×2 (08:31→15:04)
[2023-04-01] MEDS: PRENATAL VITAMINS W/ FOLIC ACID TABLET (FP) PO SCH (10:39)
[2023-04-01] MEDS: PANTOPRAZOLE 20 MG TABLET PO SCH (10:39)
[2023-04-01] MEDS: POTASSIUM CHLORIDE ORAL LIQUID 20 MEQ/15 ML PO SCH (10:39)
[2023-04-01] MEDS: FOLIC ACID 1 MG TABLET (FP) PO SCH (10:39)
[2023-04-01] MEDS: THIAMINE HCL 100 MG TABLET (FP) PO SCH (10:43)
[2023-04-01 15:40] LABS: POTASSIUM 4.7 mmol/L (3.5-5.1)
[2023-04-01 15:44] LABS: ALBUMIN 4.2 g/dl (3.4-5.0); BLOOD UREA NITROGEN 8.2 mg/dL (7-18); CALCIUM 9.2 mg/dL (8.5-10.1)
[2023-04-01 15:47] LABS: CREATININE 0.7 mg/dL (0.55-1.3)
[2023-04-01 15:49] LABS: BILIRUBIN,TOTAL 1.8 mg/dL (0.2-1); TOT PROT 7.3 g/dl (6.4-8.2)
[2023-04-01] MEDS: ATORVASTATIN CA 10 MG TABLET (FP) PO SCH (22:02)
[2023-04-01] MEDS: MELATONIN 5 MG TABLETS PO PRN (22:02)
[2023-04-02] MEDS ORDERED: chlordiazePOXIDE HCL 10 MG CAPSULE PO SCH (05:00)
[2023-04-02] MEDS ORDERED: LORazepam 0.5 MG TABLET PO ONE (05:00)
[2023-04-02 09:21] VITALS: BP 148/87; PULSE 63; RESP 17; TEMP 98.4
[2023-04-02] MEDS: PRENATAL VITAMINS W/ FOLIC ACID TABLET (FP) PO SCH (11:09)
[2023-04-02] MEDS: FOLIC ACID 1 MG TABLET (FP) PO SCH (11:09)
[2023-04-02] MEDS: PANTOPRAZOLE 20 MG TABLET PO SCH (11:09)
[2023-04-02] MEDS: THIAMINE HCL 100 MG TABLET (FP) PO SCH (11:10)
[2023-04-03] MEDS ORDERED: LORazepam 0.5 MG TABLET PO PRN
[2023-04-03] MEDS ORDERED: chlordiazePOXIDE HCL 10 MG CAPSULE PO ONE (05:00)
== END 2023-04-02 09:20 | disposition home or self-care (01) | DRG 774 ==
LOC: YASAS 13:36 → Y6N 17:03
PROVIDERS: ADMIT Allergy & Immunology; ATTEND Surgery
PROC: HZ2ZZZZ Detoxification Services for Substance Abuse Treatment (ICD-10-PCS; principal; 2023-03-29)
DX: F10.230 Alcohol dependence with withdrawal, uncomplicated (principal); F14.20 Cocaine dependence, uncomplicated; F17.210 Nicotine dependence, cigarettes, uncomplicated; F19.280 Other psychoactive substance dependence with psychoactive substance-induced anxiety disorder; F19.282 Other psychoactive substance dependence with psychoactive substance-induced sleep disorder; D69.6 Thrombocytopenia, unspecified; E78.5 Hyperlipidemia, unspecified; K21.9 Gastro-esophageal reflux disease without esophagitis; R94.5 Abnormal results of liver function studies; Z86.59 Personal history of other mental and behavioral disorders
CPT/HCPCS: 36415; 80053; 85027; 86780; 87811; 93005; 93010; C9803-CS; Q0162; U0003; U0005

== ENCOUNTER 2025-07-11 13:27 | Inpatient (IN) | payer OTHER ==
[2025-07-11] MEDS ORDERED: guaiFENesin 600 MG TABLET.ER (FP) PO PRN (13:54)
[2025-07-11] MEDS ORDERED: MAG HYDROX/AL HYDROX/SIMETH 30 ML UNIT-DOSE CUP PO PRN (13:54)
[2025-07-11] MEDS ORDERED: ACETAMINOPHEN 325 MG TABLET (FP) PO PRN (13:54)
[2025-07-11] MEDS ORDERED: MAGNESIUM HYDROX 2400MG/30ML ORAL SUSPENSION 30 ML CUP PO PRN (13:54)
[2025-07-11] MEDS ORDERED: BENZONATATE 200 MG CAPSULE PO PRN (13:54)
[2025-07-11] MEDS ORDERED: IBUPROFEN 400 MG TABLET (FP) PO PRN (13:54)
[2025-07-11] MEDS ORDERED: LOPERAMIDE HCL 2 MG CAPSULE PO PRN (13:54)
[2025-07-11] MEDS ORDERED: BENZOCAINE/MENTHOL (CHLORASEPTIC ) LOZENGE MM PRN (13:54)
[2025-07-11] MEDS ORDERED: BISMUTH SUBSALICYLATE 524 MG/30 ML PO PRN (13:54)
[2025-07-11] MEDS ORDERED: POLYETHYLENE GLYCOL (HEALTHYLAX) 3350 17 GM PACKET PO PRN (13:54)
[2025-07-11] MEDS ORDERED: NALTREXONE HCL 50 MG TABLET PO ONE (13:54)
[2025-07-11] MEDS ORDERED: IBUPROFEN 600 MG TABLET (FP) PO PRN (13:54)
[2025-07-11] MEDS ORDERED: METHOCARBAMOL 500 MG TABLET PO PRN (13:54)
[2025-07-11] MEDS ORDERED: NALOXONE (NARCAN) HCL 4 MG/0.1 ML SPRAY NS PRN (13:54)
[2025-07-11 13:56] VITALS: BMI 24.2
[2025-07-11] MEDS ORDERED: PRENATAL VITAMINS W/ FOLIC ACID TABLET (FP) PO ONE (14:59)
[2025-07-11] MEDS: PRENATAL VITAMINS W/ FOLIC ACID TABLET (FP) PO SCH (15:01)
[2025-07-11] MEDS: NALTREXONE HCL 50 MG TABLET PO ONE (15:49)
[2025-07-11] MEDS: ONDANSETRON *ODT* 4 MG TABLET SL PRN (22:38)
[2025-07-11] MEDS: THIAMINE 100 MG TABLET PO SCH (22:43)
[2025-07-11] MEDS: MELATONIN 5 MG TABLETS PO SCH (23:03)
[2025-07-11] MEDS: TRIMETHOBENZAMIDE HCL 200MG/2ML INJ IM ONE (23:33)
[2025-07-11] MEDS: LORazepam 2 MG/ML SDV VIAL IM ONE (23:57)
[2025-07-12] MEDS: DICYCLOMINE HCL 10 MG CAPSULE PO PRN (05:28)
[2025-07-12 10:18] LABS: MCHC 34.0 g/dl (32.3-36.5); MEAN CELL VOLUME 92.1 fl (79.0-92.2); MEAN PLT VOLUME 10.7 fl (9.4-12.4); RDW 12.9 % (12.1-15.9)
[2025-07-12 10:26] LABS: GLUCOSE,RANDOM 128.0 mg/dL (74-106); TOT PROT 7.0 g/dl (6.4-8.2)
[2025-07-12 10:27] LABS: CO2 26.0 mmol/L (21-32)
[2025-07-12 10:28] LABS: ALK PHOS 98.0 U/L (40-150)
[2025-07-12 10:31] LABS: CREATININE 0.6 mg/dL (0.55-1.3); SGOT/AST 97.0 U/L (5-34); SGPT/ALT 37.0 U/L (0-55)
[2025-07-12] MEDS: SERTRALINE HCL 50 MG TABLET (FP) PO SCH (10:46)
[2025-07-12] MEDS ORDERED: ALBUTEROL SO4 HFA INHALER IH PRN (12:35)
[2025-07-12] MEDS: PANTOPRAZOLE 40 MG TABLET PO SCH (13:21)
[2025-07-12] MEDS: hydrOXYzine PAMOATE 25 MG CAPSULE (FP) PO PRN (13:48)
[2025-07-13 09:04] VITALS: RESP 16
[2025-07-13] MEDS: PANTOPRAZOLE 40 MG TABLET PO SCH (10:02)
[2025-07-13] MEDS: ATORVASTATIN CA 10 MG TABLET (FP) PO SCH (10:04)
[2025-07-13 12:49] VITALS: BP 139/101; PULSE 120; TEMP 97.1
== END 2025-07-13 15:18 | disposition left against medical advice (07) | DRG 770 ==
LOC: YASAS 13:27 → Y6N 14:48
PROVIDERS: ADMIT Allergy & Immunology; ATTEND Student in an Organized Health Care Education/Training Program
PROC: HZ2ZZZZ Detoxification Services for Substance Abuse Treatment (ICD-10-PCS; principal; 2025-07-11)
DX: F10.230 Alcohol dependence with withdrawal, uncomplicated (principal); F31.9 Bipolar disorder, unspecified; F10.282 Alcohol dependence with alcohol-induced sleep disorder; F10.280 Alcohol dependence with alcohol-induced anxiety disorder; F10.24 Alcohol dependence with alcohol-induced mood disorder; F43.10 Post-traumatic stress disorder, unspecified; F41.8 Other specified anxiety disorders; E78.5 Hyperlipidemia, unspecified; J45.909 Unspecified asthma, uncomplicated; K21.9 Gastro-esophageal reflux disease without esophagitis; R79.89 Other specified abnormal findings of blood chemistry
CPT/HCPCS: 36415; 80053; 80307; 85027; 86780; 93005; 93010; Q0162